=== PATIENT | female | born 1985 | race Caucasian/White ===

== ENCOUNTER 2017-06-22 13:37 | Inpatient (IN) | payer OTHER ==
[2017-06-22 14:00] LABS: ADD MAN DIFF? NO
[2017-06-22 14:02] LABS: WHITE BLOOD COUNT 12.2 10^3/ul (4.8-10.8)
[2017-06-22 14:02] LABS: BASOPHIL # 0.1 10^3/ul (0.0-0.1); BASOPHILS % 0.6 % (0.0-2.0); EOSINOPHILS # 0.1 10^3/ul (0.0-0.5); EOSINOPHILS % 0.7 % (0.0-7.0); HEMATOCRIT 30.2 % (37.0-47.0); HEMOGLOBIN 9.7 g/dl (12.0-16.0); LYMPHOCYTES # 2.5 10^3/ul (0.8-2.9); LYMPHOCYTES % 20.5 % (15.0-51.0); MEAN CORPUSCULAR HEMOGLOBIN 22.9 pg (29.0-33.0); MEAN CORPUSCULAR HGB CONC 32.1 g/dl (32.0-37.0); MEAN CORPUSCULAR VOLUME 71.2 fl (82.0-101.0); MEAN PLATELET VOLUME 11.6 fl (7.4-10.4); MONOCYTE # 0.5 10^3/ul (0.3-0.9); MONOCYTES % 3.9 % (0.0-11.0); NEUTROPHIL # 8.9 10^3/ul (1.6-7.5); NUCLEATED RED BLOOD CELLS% 0.3 /100WBC (0.0-0.0); PLATELET COUNT 263 10^3/UL (140-415); RED BLOOD COUNT 4.24 10^6/ul (4.20-5.40); RED CELL DISTRIBUTION WIDTH 15.9 % (11.5-14.5)
[2017-06-22 14:13] LABS: ADD UMIC YES; UR ASCORBIC ACID NEGATIVE (NEGATIVE); UR BILIRUBIN (Dip) NEGATIVE (NEGATIVE); UR BLOOD (Dip) 1+ mg/dL (NEGATIVE); UR CLARITY SLIGHTLY CLOUDY (CLEAR); UR COLOR YELLOW (YELLOW); UR GLUCOSE (Dip) NEGATIVE (NEGATIVE); UR KETONES (Dip) NEGATIVE (NEGATIVE); UR LEUKOCYTE ESTERASE (Dip) 1+ Leu/ul (NEGATIVE); UR NITRITE (Dip) NEGATIVE (NEGATIVE); UR RBC 2 /HPF (0-5); UR SPECIFIC GRAVITY (Dip) 1.015 (1.003-1.030); UR SQUAMOUS EPITHELIAL CELL MODERATE /HPF (FEW); UR TOTAL PROTEIN (Dip) 2+ mg/dl (NEGATIVE); UR UROBILINOGEN (Dip) NEGATIVE (NEGATIVE); UR WBC 1 /HPF (0-5)
[2017-06-22 14:26] LABS: INR 0.95; PARTIAL THROMBOPLASTIN TIME 31.4 Sec (25.0-35.0); PROTIME 12.8 Sec (11.9-14.9)
[2017-06-22 14:28] LABS: ALANINE AMINOTRANSFERASE 26 IU/L (13-69); ALBUMIN 3.3 g/dl (3.3-4.9); ALBUMIN/GLOBULIN RATIO 0.82; ALKALINE PHOSPHATASE 497 IU/L (42-121); ANION GAP 13 (8-16); ASPARTATE AMINO TRANSFERASE 22 IU/L (15-46); BILIRUBIN,INDIRECT 0.1 mg/dl (0-1.1); BILIRUBIN,TOTAL 0.1 mg/dl (0.2-1.3); BLOOD UREA NITROGEN 8 mg/dl (7-20); CALCIUM 8.8 mg/dl (8.4-10.2); CARBON DIOXIDE 20 mmol/L (21-31); CHLORIDE 107 mmol/L (97-110); CREATININE 0.67 mg/dl (0.44-1.00); GLUCOSE 128 mg/dl (70-220); POTASSIUM 3.8 mmol/L (3.5-5.1); SODIUM 136 mmol/L (135-144); TOTAL PROTEIN 7.3 g/dl (6.1-8.1)
[2017-06-22 14:29] LABS: URIC ACID 5.7 mg/dl (3.1-7.9)
[2017-06-22] MEDS ORDERED: GLUCOSE GEL 15 GRAM TUBE PO ×2 (16:00)
[2017-06-22] MEDS ORDERED: GLUCOSE GEL 15 GRAM TUBE BUCCAL (16:00)
[2017-06-22] MEDS ORDERED: DEXTROSE 50% 50 ML SYRINGE IV ×2 (16:00)
[2017-06-22] MEDS ORDERED: GLUCAGON 1 MG INJ IM (16:00)
[2017-06-22] MEDS: BETAMET NA PHOS/AC(6 MG/ML) 5ML INJ IM (16:20)
[2017-06-22] MEDS: LACTATED RINGER'S 1,000 ML IV ×2 (16:48→22:00)
[2017-06-22] MEDS: metFORMIN (XR) 500 MG TAB PO (18:16)
[2017-06-22] MEDS: ACCU-CHEK XX (20:26)
[2017-06-22] MEDS: INSULIN ASPART [NOVOLOG] 3 ML PEN SC (20:49)
[2017-06-23] MEDS: LACTATED RINGER'S 1,000 ML IV ×4 (04:37→23:27)
[2017-06-23] MEDS: ACCU-CHEK XX ×4 (07:44→19:57)
[2017-06-23] MEDS: metFORMIN (XR) 500 MG TAB PO ×2 (07:46→17:50)
[2017-06-23] MEDS: INSULIN ASPART [NOVOLOG] 3 ML PEN SC ×3 (09:35→20:08)
[2017-06-23] MEDS: BETAMET NA PHOS/AC(6 MG/ML) 5ML INJ IM (16:40)
[2017-06-23] MEDS ORDERED: ACETAMINOPHEN 325 MG TAB (16:49)
[2017-06-23] MEDS: ACETAMINOPHEN 325 MG TAB PO (17:00)
[2017-06-23 19:42] LABS: COLLECTION PERIOD 24 hrs
[2017-06-23 20:33] LABS: COLLECTION PERIOD 24 hrs; SCRET 0.67 mg/dl (0.44-1.00); VOLUME 2075 ml/24hrs
[2017-06-23 20:56] LABS: CREATININE CLEARANCE 135.6 mls/min (84.0-162.0); CREATININE,URINE RANDOM 63.06 mg/dl (20-320)
[2017-06-23 21:57] LABS: VOLUME 2075 mls
[2017-06-23 22:06] LABS: RUPTURE FETAL MEMBRANES NEGATIVE (NEGATIVE)
[2017-06-24] MEDS: LACTATED RINGER'S 1,000 ML IV ×3 (06:11→20:16)
[2017-06-24] MEDS: ACCU-CHEK XX ×4 (07:30→20:22)
[2017-06-24] MEDS: metFORMIN (XR) 500 MG TAB PO ×2 (09:17→17:56)
[2017-06-24] MEDS: INSULIN ASPART [NOVOLOG] 3 ML PEN SC ×3 (10:05→20:20)
[2017-06-25] MEDS: LACTATED RINGER'S 1,000 ML IV ×2 (02:46→08:28)
[2017-06-25] MEDS: ACETAMINOPHEN 325 MG TAB PO (08:30)
[2017-06-25] MEDS: ACCU-CHEK XX ×2 (08:30→11:28)
[2017-06-25] MEDS: metFORMIN (XR) 500 MG TAB PO (09:36)
[2017-06-25] MEDS: INSULIN ASPART [NOVOLOG] 3 ML PEN SC (11:28)
== END 2017-06-25 15:32 | disposition home or self-care (01) | DRG 781 ==
LOC: OBT 13:37 → PP1 06-23 13:57 → L-D 13:37 → OBT 15:19 → OBG 15:10 → L-D 16:00
PROVIDERS: Obstetrics & Gynecology
DX: O16.3 Unspecified maternal hypertension, third trimester (principal); O41.03X0 Oligohydramnios, third trimester, not applicable or unspecified; O24.419 Gestational diabetes mellitus in pregnancy, unspecified control; Z3A.35 35 weeks gestation of pregnancy
CPT/HCPCS: 36415; 76815; 76816; 76818; 80053; 81001; 82575; 82962; 84112; 84156; 84560; 85025; 85384; 85610; 85730; 87086

== ENCOUNTER 2017-07-06 04:54 | Inpatient (IN) | payer OTHER ==
[2017-07-06] MEDS: LACTATED RINGER'S 1,000 ML IV ×4 (06:13→18:52)
[2017-07-06 07:03] LABS: ADD MAN DIFF? NO
[2017-07-06 07:11] LABS: ADD UMIC YES; UR ASCORBIC ACID NEGATIVE (NEGATIVE); UR BACTERIA FEW /HPF (NONE SEEN); UR BILIRUBIN (Dip) NEGATIVE (NEGATIVE); UR BLOOD (Dip) 1+ mg/dL (NEGATIVE); UR CLARITY SLIGHTLY CLOUDY (CLEAR); UR COLOR YELLOW (YELLOW); UR GLUCOSE (Dip) NEGATIVE (NEGATIVE); UR KETONES (Dip) NEGATIVE (NEGATIVE); UR LEUKOCYTE ESTERASE (Dip) NEGATIVE Leu/ul (NEGATIVE); UR MUCUS FEW /HPF (NONE SEEN); UR NITRITE (Dip) NEGATIVE (NEGATIVE); UR RBC 4 /HPF (0-5); UR SPECIFIC GRAVITY (Dip) 1.024 (1.003-1.030); UR SQUAMOUS EPITHELIAL CELL FEW /HPF (FEW); UR TOTAL PROTEIN (Dip) 3+ mg/dl (NEGATIVE); UR UROBILINOGEN (Dip) NEGATIVE (NEGATIVE); UR WBC 3 /HPF (0-5)
[2017-07-06 07:23] LABS: ABNORMAL IP MESSAGE 1; BASOPHIL # 0.1 10^3/ul (0.0-0.1); BASOPHILS % 0.5 % (0.0-2.0); EOSINOPHILS # 0.1 10^3/ul (0.0-0.5); EOSINOPHILS % 0.8 % (0.0-7.0); HEMATOCRIT 30.9 % (37.0-47.0); HEMOGLOBIN 9.9 g/dl (12.0-16.0); LYMPHOCYTES # 2.4 10^3/ul (0.8-2.9); LYMPHOCYTES % 16.8 % (15.0-51.0); MEAN CORPUSCULAR HEMOGLOBIN 22.5 pg (29.0-33.0); MEAN CORPUSCULAR VOLUME 70.2 fl (82.0-101.0); MEAN PLATELET VOLUME 12.4 fl (7.4-10.4); MONOCYTE # 0.7 10^3/ul (0.3-0.9); MONOCYTES % 5.2 % (0.0-11.0); NEUTROPHIL # 10.6 10^3/ul (1.6-7.5); NEUTROPHILS % 74.8 % (39.0-77.0); NUCLEATED RED BLOOD CELLS% 0.2 /100WBC (0.0-0.0); PLATELET COUNT 217 10^3/UL (140-415); RED CELL DISTRIBUTION WIDTH 17.2 % (11.5-14.5)
[2017-07-06 07:23] LABS: WHITE BLOOD COUNT 14.2 10^3/ul (4.8-10.8)
[2017-07-06 07:24] LABS: ALANINE AMINOTRANSFERASE 26 IU/L (13-69); ALBUMIN 3.1 g/dl (3.3-4.9); ALBUMIN/GLOBULIN RATIO 0.86; ALKALINE PHOSPHATASE 501 IU/L (42-121); ANION GAP 14 (8-16); ASPARTATE AMINO TRANSFERASE 20 IU/L (15-46); BLOOD UREA NITROGEN 9 mg/dl (7-20); CALCIUM 8.5 mg/dl (8.4-10.2); CARBON DIOXIDE 17 mmol/L (21-31); CHLORIDE 110 mmol/L (97-110); CREATININE 0.65 mg/dl (0.44-1.00); GLUCOSE 99 mg/dl (70-220); POTASSIUM 4.4 mmol/L (3.5-5.1); SODIUM 137 mmol/L (135-144); TOTAL PROTEIN 6.7 g/dl (6.1-8.1); URIC ACID 5.2 mg/dl (3.1-7.9)
[2017-07-06 07:25] LABS: INR 0.94; PROTIME 12.7 Sec (11.9-14.9)
[2017-07-06 07:26] LABS: PARTIAL THROMBOPLASTIN TIME 30.3 Sec (25.0-35.0)
[2017-07-06] MEDS ORDERED: MAGNESIUM SULFATE 20 GM/500 ML 500 ML IV (07:39)
[2017-07-06] MEDS: MAGNESIUM SULFATE 4 GM/100 ML 100 ML IVPB (07:59)
[2017-07-06] MEDS ORDERED: METHYLERGONOVINE 0.2 MG INJ IM ×2 (08:00→18:00)
[2017-07-06] MEDS ORDERED: MAGNESIUM SULFATE 4 GM in DEXTROSE 5% 100 ML IV (08:00)
[2017-07-06] MEDS ORDERED: CARBOPROST 250 MCG INJ IM ×2 (08:00→18:00)
[2017-07-06] MEDS ORDERED: OXYTOCIN 30 UNITS/LR 500 ML IV ×3 (08:00→18:00)
[2017-07-06] MEDS ORDERED: MISOPROSTOL 200 MCG TAB PR ×2 (08:00→18:00)
[2017-07-06] MEDS: MAGNESIUM SULFATE 20 GM/500 ML 500 ML IV ×2 (08:19→20:27)
[2017-07-06] MEDS ORDERED: FENTAnyl 2MCG/ML-ROPIV 0.2% 100 ML (08:39)
[2017-07-06] MEDS ORDERED: ONDANSETRON 4 MG INJ IV ×3 (10:00→15:30)
[2017-07-06] MEDS ORDERED: NALOXONE (0.4 MG/ML) INJ IV ×2 (10:00→15:30)
[2017-07-06] MEDS ORDERED: DIPHENHYDRAMINE 50 MG INJ IV ×3 (10:00→15:30)
[2017-07-06] MEDS ORDERED: FENTAnyl 2MCG/ML-ROPIV 0.2% 100 ML BAG EPI (10:00)
[2017-07-06 12:29] LABS: HEPATITIS B SURFACE ANTIGEN NEGATIVE (NEGATIVE)
[2017-07-06] MEDS: LACTATED RINGER'S 2,000 ML IV (13:00)
[2017-07-06] MEDS: CEFAZOLIN 2 GM/50 ML (PMX) 50 ML IV ×3 (13:43→21:42)
[2017-07-06] MEDS ORDERED: morphine SULFATE/PF (10 MG/10 ML) INJ (13:45)
[2017-07-06] MEDS ORDERED: FENTAnyl 50 MCG/ML VIAL (13:45)
[2017-07-06] MEDS ORDERED: CHLOROPROCAINE 3% (MPF) 20 ML INJ (13:55)
[2017-07-06] MEDS ORDERED: EPHEDrine SULFATE 50 MG/5 ML SYG (14:15)
[2017-07-06] MEDS ORDERED: PHENYLephrine (100 MCG/ML) 5ML SYG ×2 (14:17→14:28)
[2017-07-06] MEDS ORDERED: KETOROLAC 30 MG INJ (15:04)
[2017-07-06 15:14] LABS: MAGNESIUM 2.9 mg/dl (1.7-2.5)
[2017-07-06] MEDS ORDERED: ZOLPIDEM 5 MG TAB PO (15:30)
[2017-07-06] MEDS ORDERED: HYDROmorphONE (0.2 MG/ML) 10ML SYG IV ×3 (15:30)
[2017-07-06] MEDS ORDERED: PROCHLORPERAZINE 10 MG INJ IV (15:30)
[2017-07-06] MEDS ORDERED: MEPERIDINE 25 MG INJ IV (15:30)
[2017-07-06] MEDS ORDERED: FENTAnyl 50 MCG/ML VIAL IV ×3 (15:30)
[2017-07-06] MEDS ORDERED: HYDROmorphONE 0.5 MG/0.5 ML SYG IV ×2 (15:30)
[2017-07-06 16:53] LABS: RAPID PLASMA REAGIN NONREACTIVE (NR)
[2017-07-06] MEDS: CLINDAMYCIN 300 MG CAP PO ×2 (18:00→23:36)
[2017-07-06] MEDS ORDERED: NA PHOSPHATE/BIPHOS 133 ML ENEMA PR (18:00)
[2017-07-06] MEDS ORDERED: HYDROCODONE/APAP (5/325) TAB PO (18:00)
[2017-07-06] MEDS ORDERED: OXYCODONE/ACETAMINOPHEN (5/325) TAB PO (18:00)
[2017-07-06] MEDS ORDERED: GLUCAGON 1 MG INJ IM (18:30)
[2017-07-06] MEDS ORDERED: GLUCOSE GEL 15 GRAM TUBE BUCCAL (18:30)
[2017-07-06] MEDS ORDERED: DEXTROSE 50% 50 ML SYRINGE IV ×2 (18:30)
[2017-07-06] MEDS ORDERED: GLUCOSE GEL 15 GRAM TUBE PO ×2 (18:30)
[2017-07-06] MEDS: ACCU-CHEK XX ×2 (19:35→20:05)
[2017-07-06] MEDS: metFORMIN (XR) 500 MG TAB PO (21:05)
[2017-07-06] MEDS: SENNA/DOCUSATE NA (8.6MG/50MG) TAB PO (21:05)
[2017-07-07 02:15] LABS: MAGNESIUM 4.2 mg/dl (1.7-2.5)
[2017-07-07] MEDS: LACTATED RINGER'S 1,000 ML IV (04:46)
[2017-07-07] MEDS: CEFAZOLIN 2 GM/50 ML (PMX) 50 ML IV ×2 (05:43→14:24)
[2017-07-07] MEDS: CLINDAMYCIN 300 MG CAP PO ×3 (05:43→18:01)
[2017-07-07 07:30] LABS: ADD MAN DIFF? NO
[2017-07-07] MEDS: ACCU-CHEK XX ×4 (07:30→20:43)
[2017-07-07 07:40] LABS: BASOPHIL # 0.1 10^3/ul (0.0-0.1); BASOPHILS % 0.5 % (0.0-2.0); EOSINOPHILS % 0.2 % (0.0-7.0); HEMATOCRIT 28.5 % (37.0-47.0); LYMPHOCYTES # 2.7 10^3/ul (0.8-2.9); LYMPHOCYTES % 16.4 % (15.0-51.0); MEAN CORPUSCULAR HEMOGLOBIN 22.3 pg (29.0-33.0); MEAN CORPUSCULAR HGB CONC 31.6 g/dl (32.0-37.0); MEAN CORPUSCULAR VOLUME 70.5 fl (82.0-101.0); MEAN PLATELET VOLUME 11.8 fl (7.4-10.4); MONOCYTE # 0.9 10^3/ul (0.3-0.9); MONOCYTES % 5.6 % (0.0-11.0); NEUTROPHIL # 12.4 10^3/ul (1.6-7.5); NEUTROPHILS % 76.1 % (39.0-77.0); NUCLEATED RED BLOOD CELLS% 0.1 /100WBC (0.0-0.0); PLATELET COUNT 208 10^3/UL (140-415); RED BLOOD COUNT 4.04 10^6/ul (4.20-5.40); RED CELL DISTRIBUTION WIDTH 17.2 % (11.5-14.5)
[2017-07-07 07:40] LABS: WHITE BLOOD COUNT 16.3 10^3/ul (4.8-10.8)
[2017-07-07] MEDS: metFORMIN (XR) 500 MG TAB PO ×2 (09:11→21:43)
[2017-07-07] MEDS: SENNA/DOCUSATE NA (8.6MG/50MG) TAB PO ×2 (09:11→21:43)
[2017-07-07 12:51] LABS: MAGNESIUM 3.7 mg/dl (1.7-2.5)
[2017-07-07] MEDS: IBUPROFEN 800 MG TAB PO ×2 (14:00→21:43)
[2017-07-07] MEDS: KETOROLAC 30 MG INJ IV (14:25)
[2017-07-07] MEDS: BISACODYL 10 MG SUPP PR (14:27)
[2017-07-07] MEDS: INFLUENZA VIRUS VACCINE 0.5 ML (DISPENSING) IM* (14:27)
[2017-07-08] MEDS: CLINDAMYCIN 300 MG CAP PO ×4 (00:20→18:18)
[2017-07-08] MEDS: IBUPROFEN 800 MG TAB PO ×3 (05:30→22:00)
[2017-07-08] MEDS: ACCU-CHEK XX ×4 (07:30→22:00)
[2017-07-08 07:56] LABS: ADD MAN DIFF? NO
[2017-07-08 08:06] LABS: BASOPHIL # 0.1 10^3/ul (0.0-0.1); BASOPHILS % 0.4 % (0.0-2.0); EOSINOPHILS # 0.2 10^3/ul (0.0-0.5); EOSINOPHILS % 1.1 % (0.0-7.0); HEMATOCRIT 29.6 % (37.0-47.0); HEMOGLOBIN 9.3 g/dl (12.0-16.0); LYMPHOCYTES % 19.3 % (15.0-51.0); MEAN CORPUSCULAR HEMOGLOBIN 22.1 pg (29.0-33.0); MEAN CORPUSCULAR HGB CONC 31.4 g/dl (32.0-37.0); MEAN CORPUSCULAR VOLUME 70.5 fl (82.0-101.0); MEAN PLATELET VOLUME 10.8 fl (7.4-10.4); MONOCYTE # 0.9 10^3/ul (0.3-0.9); MONOCYTES % 5.9 % (0.0-11.0); NEUTROPHIL # 11.1 10^3/ul (1.6-7.5); NEUTROPHILS % 71.9 % (39.0-77.0); PLATELET COUNT 207 10^3/UL (140-415); RED CELL DISTRIBUTION WIDTH 17.5 % (11.5-14.5)
[2017-07-08 08:06] LABS: WHITE BLOOD COUNT 15.4 10^3/ul (4.8-10.8)
[2017-07-08] MEDS ORDERED: INFLUENZA VIRUS VACCINE 0.5 ML (DISPENSING) IM* (09:00)
[2017-07-08] MEDS: SENNA/DOCUSATE NA (8.6MG/50MG) TAB PO ×2 (09:03→21:00)
[2017-07-08] MEDS: metFORMIN (XR) 500 MG TAB PO ×2 (09:03→21:55)
[2017-07-08] MEDS: LANOLIN 7 GM TUBE TOP (09:03)
[2017-07-09] MEDS: CLINDAMYCIN 300 MG CAP PO ×4 (01:25→19:13)
[2017-07-09] MEDS: IBUPROFEN 800 MG TAB PO ×4 (05:36→23:01)
[2017-07-09] MEDS: metFORMIN (XR) 500 MG TAB PO ×2 (08:48→21:14)
[2017-07-09] MEDS: SENNA/DOCUSATE NA (8.6MG/50MG) TAB PO ×2 (08:49→21:00)
[2017-07-09] MEDS: MEASLES,MUMPS,RUBELLA VACCINE INJ SC* (09:00)
[2017-07-09] MEDS: ACCU-CHEK XX ×4 (10:05→20:05)
[2017-07-09] MEDS: DIPHTH/TET/ACEL PERTUSS (ADULT) 0.5 ML VIAL IM* (19:14)
[2017-07-10] MEDS: CLINDAMYCIN 300 MG CAP PO ×3 (00:10→11:20)
[2017-07-10] MEDS: IBUPROFEN 800 MG TAB PO (05:53)
[2017-07-10] MEDS: ACCU-CHEK XX (07:30)
[2017-07-10] MEDS: SENNA/DOCUSATE NA (8.6MG/50MG) TAB PO (09:04)
[2017-07-10] MEDS: metFORMIN (XR) 500 MG TAB PO (09:04)
== END 2017-07-10 13:44 | disposition home or self-care (01) | DRG 766 ==
LOC: OBT 04:54 → L-D 04:55 → OBT 07:48 → L-D 07:49 → PP1 17:58
PROC: 10D00Z1 Extraction of Products of Conception, Low, Open Approach (ICD-10-PCS; principal; 2017-07-06 12:45)
DX: O13.4 Gestational [pregnancy-induced] hypertension without significant proteinuria, complicating childbirth (principal); O24.425 Gestational diabetes mellitus in childbirth, controlled by oral hypoglycemic drugs; Z37.0 Single live birth; O34.211 Maternal care for low transverse scar from previous cesarean delivery; Z3A.37 37 weeks gestation of pregnancy
CPT/HCPCS: 36415; 76818; 80053; 81001; 82962; 83735; 84560; 85025; 85384; 85610; 85730; 86592; 86850; 86900; 86901; 87340; 90686; 90715; 96360; 99464; J2400

== ENCOUNTER 2017-07-16 14:48 | Emergency (ER) | payer OTHER | END 2017-07-16 16:33 | disposition home or self-care (01) | LOC: FTE 14:48 | DX: O90.2 Hematoma of obstetric wound (principal); J45.909 Unspecified asthma, uncomplicated; Z79.84 Long term (current) use of oral hypoglycemic drugs | CPT/HCPCS: 99283; Z7502 ==

== ENCOUNTER 2018-09-27 13:47 | Emergency (ER) | payer OTHER | END 2018-09-27 15:24 | disposition home or self-care (01) | LOC: FTE 13:47 | DX: R42 Dizziness and giddiness (principal); J45.909 Unspecified asthma, uncomplicated; Z79.82 Long term (current) use of aspirin | CPT/HCPCS: 99282; Z7502 ==